=== PATIENT | female | born 1975 | race Caucasian/White ===

== ENCOUNTER 2019-01-21 10:56 | Inpatient (IN) | payer OTHER ==
[2019-01-21] MEDS ORDERED: NORMAL SALINE 1000 ML 1,000 ML IV ONE ×2 (11:18→13:56)
[2019-01-21] MEDS ORDERED: LORAZEPAM INJ 2 MG/1 ML VIAL IV ONE (11:18)
[2019-01-21] MEDS ORDERED: ONDANSETRON HCL INJ/PF 4 MG/2 ML SDV IV ONE ×2 (11:18→12:25)
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
[2019-01-21 11:27] LABS: HEMOGLOBIN 13.6 g/dL (12.0-15.5); MEAN CORPUSCULAR HGB CONC 34.1 g/dL (32.0-36.0); MEAN CORPUSCULAR VOLUME 97 fl (80-97); PLATELET COUNT 673 10^3/uL (150-450); RED BLOOD COUNT 4.14 10^6/uL (3.72-5.28); RED CELL DISTRIBUTION WIDTH 15.2 % (11.5-14.0); WHITE BLOOD COUNT 27.4 10^3/uL (4.0-10.5)
[2019-01-21] MEDS ORDERED: LABETALOL HCL INJ 20 MG/4 ML DISP.SYRIN IV ONE ×2 (11:39→13:48)
[2019-01-21 11:44] LABS: ALBUMIN 5.1 g/dL (3.5-5.0); ALKALINE PHOSPHATASE 78 U/L (38-126); ASPARTATE AMINO TRANSFERASE 37 U/L (14-36); BILIRUBIN,DIRECT 0.1 mg/dL (0.0-0.4); BILIRUBIN,TOTAL 0.6 mg/dL (0.2-1.3); BLOOD UREA NITROGEN 9 mg/dL (7-20); CALCIUM 10.7 mg/dL (8.4-10.2); GLUCOSE 190 mg/dL (75-110); POTASSIUM 4.2 mmol/L (3.6-5.0); TOTAL PROTEIN 8.7 g/dL (6.3-8.2)
[2019-01-21 11:48] LABS: CARBON DIOXIDE 12 mmol/L (22-30); CHLORIDE 108 mmol/L (98-107)
[2019-01-21 11:49] LABS: ALCOHOL < 10 mg/dL (NONE DETECTED)
[2019-01-21 11:58] LABS: ANION GAP 24 (5-19)
[2019-01-21 12:12] LABS: ABSOLUTE LYMPHOCYTES# (MANUAL) 1.6 10^3/uL (0.5-4.7); ABSOLUTE MONOCYTES # (MANUAL) 3.6 10^3/uL (0.1-1.4); BASOPHILS % (MANUAL) 0 % (0-2); EOSINOPHILS % (MANUAL) 0 % (0-6); LYMPHOCYTES % (MANUAL) 6 % (13-45); MONOCYTES % (MANUAL) 13 % (3-13); SEGMENTED NEUTROPHILS % (MAN) 81 % (42-78); TOTAL CELLS COUNTED 100
[2019-01-21 12:13] LABS: ANISOCYTOSIS SLIGHT
[2019-01-21 12:14] LABS: PLATELET COMMENT INCREASED
[2019-01-21 12:53] LABS: APPEARANCE,URINE CLEAR; BILIRUBIN,URINE NEGATIVE (NEGATIVE); COLOR,URINE STRAW; GLUCOSE, URINE 50 mg/dL (NEGATIVE); KETONES,URINE TRACE mg/dL (NEGATIVE); LEUKOCYTE ESTERASE,URINE NEGATIVE (NEGATIVE); NITRITE,URINE NEGATIVE (NEGATIVE); PROTEIN,URINE NEGATIVE (NEGATIVE); URINE SPECIFIC GRAVITY 1.008; UROBILINOGEN,URINE NEGATIVE mg/dL (<2.0)
[2019-01-21 13:04] LABS: URINE AMPHETAMINES SCREEN NEGATIVE; URINE BARBITURATES SCREEN NEGATIVE; URINE BENZODIAZEPINES SCREEN NEGATIVE; URINE COCAINE SCREEN NEGATIVE; URINE MARIJUANA (THC) SCREEN NEGATIVE; URINE METHADONE SCREEN NEGATIVE; URINE PHENCYCLIDINE SCREEN NEGATIVE
--- NOTE | 2019-01-21 13:13 | RADIOLOGY REPORT (SQ) ---
EXAM DESCRIPTION: CT ABD/PELVIS WITH IV ONLY COMPLETED DATE/TIME: 01/21/2019 12:57 pm REASON FOR STUDY: abd pain/vomiting COMPARISON: None. TECHNIQUE: CT scan of the abdomen and pelvis performed using helical scanning technique with dynamic intravenous contrast injection. No oral contrast. Images reviewed with lung, soft tissue, and bone windows. Reconstructed coronal and sagittal MPR images reviewed. Delayed images were not acquired. Al l images stored on PACS. All CT scanners at this facility use dose modulation, iterative reconstruction, and/or weight based d osing when appropriate to reduce radiation dose to as low as reasonably achievable (ALARA). [facility]: Dose Right [facility]: CareDose [facility]: Dose Right [facility]: Teradose 4D [facility]: britebill CONTRAST TYPE AND DOSE: contrast/concentration: Isovue 350.00 mg/ml; Total Contrast Delivered: 66.0 ml; Total Saline Delivered: 65.0 ml RENAL FUNCTION: BUN 9 creatinine 0.84. RADIATION DOSE: CT Rad equipment meets quality standard of care and radiation dose reduction techniq ues were employed. CTDIvol: 4.8 - 5.4 mGy. DLP: 478 mGy-cm.. LIMITATIONS: None. FINDINGS: LOWER CHEST: No significant findings. No nodules or infiltrates. LIVER: Normal size. No masses. No dilated ducts. SPLEEN: Normal size. No focal lesions. PANCREAS: No masses. No significant calcifications. No adjacent inflammation or peripancreatic fluid collections. Pancreatic duct not dilated. GALLBLADDER: No identified stones by CT criteria. No inflammatory changes to suggest cholecystitis. ADRENAL GLANDS: No significant masses or asymmetry. RIGHT KIDNEY AND URETER: No solid masses. No significant calcifications. No hydronephrosis or hyd roureter. LEFT KIDNEY AND URETER: No solid masses. No significant calcifications. No hydronephrosis or hydr oureter. AORTA AND VESSELS: No aneurysm. No dissection. Renal arteries, SMA, celiac without stenosis. RETROPERITONEUM: No retroperitoneal adenopathy, hemorrhage or masses. BOWEL AND PERITONEAL CAVITY: Relative thickening of the wall throughout the colon which may be partly artifactual due to the fact that the colon is not distended. No masses or inflammatory changes. No free fluid or peritoneal masses. APPENDIX: Normal. PELVIS: No mass. No free fluid. Normal bladder. ABDOMINAL WALL: No masses. No hernias. BONES: No significant or acute findings. OTHER: No other significant finding. IMPRESSION: 1. RELATIVE THICKENING OF THE WALL THROUGHOUT THE COLON. THIS PROBABLY IS AT LEAST PARTIALLY ARTIFAC TUAL DUE TO LACK OF DISTENTION. NO SIGNIFICANT INFLAMMATORY CHANGES BUT CANNOT EXCLUDE THE POSSIBILI TY OF A DIFFUSE COLITIS. 2. NO OTHER SIGNIFICANT OR ACUTE FINDING IN THE ABDOMEN OR PELVIS ON CT SCAN WITH IV CONTRAST. TECHNICAL DOCUMENTATION: JOB ID: [id number] Quality ID # [id number]: Final reports with documentation of one or more dose reduction techniques (e.g., Au tomated exposure control, adjustment of the mA and/or kV according to patient size, use of iterative reconstruction technique) 2010 [employer]- All Rights Reserved Reading location - IP/workstation name: [email or web address]
[2019-01-21] MEDS ORDERED: CLONIDINE HCL 0.2 MG TABLET PO ONE (13:45)
[2019-01-21] MEDS ORDERED: PROMETHAZINE HCL INJ 25 MG/1 ML VIAL IV ONE (14:54)
--- NOTE | 2019-01-21 15:24 | RADIOLOGY REPORT (SQ) ---
EXAM DESCRIPTION: CHEST 2 VIEWS COMPLETED DATE/TIME: 01/21/2019 3:07 pm REASON FOR STUDY: confusion COMPARISON: None. EXAM PARAMETERS: NUMBER OF VIEWS: two views TECHNIQUE: Digital Frontal and Lateral radiographic views of the chest acquired. RADIATION DOSE: NA LIMITATIONS: none FINDINGS: LUNGS AND PLEURA: No consolidation, pneumothorax or pleural effusion. MEDIASTINUM AND HILAR STRUCTURES: No masses or contour abnormalities. HEART AND VASCULAR STRUCTURES: Heart normal size. No evidence for failure. BONES: Healed fracture at the posterior left 7th rib. HARDWARE: None in the chest. IMPRESSION: No acute radiographic finding in the chest. TECHNICAL DOCUMENTATION: JOB ID: [id number] [place]-64 2010 [employer]- All Rights Reserved Reading location - IP/workstation name: [email or web address]
--- NOTE | 2019-01-21 15:47 | RADIOLOGY REPORT (SQ) ---
EXAM DESCRIPTION: CT HEAD WITHOUT COMPLETED DATE/TIME: 01/21/2019 3:14 pm REASON FOR STUDY: confusion COMPARISON: None. TECHNIQUE: Axial images acquired through the brain without intravenous contrast. Images reviewed wi th bone, brain and subdural windows. Additional sagittal and coronal reconstructions were generated. Images stored on PACS. All CT scanners at this facility use dose modulation, iterative reconstruction, and/or weight based d osing when appropriate to reduce radiation dose to as low as reasonably achievable (ALARA). [facility]: Dose Right [facility]: CareDose [facility]: Dose Right [facility]: Teradose 4D [facility]: iDoneThis RADIATION DOSE: CT Rad equipment meets quality standard of care and radiation dose reduction techniq ues were employed. CTDIvol: 53.2 mGy. DLP: 937 mGy-cm. mGy. LIMITATIONS: None. FINDINGS: VENTRICLES: Normal size and contour. CEREBRUM: No masses. No hemorrhage. No midline shift. No evidence for acute infarction. Normal gra y/white matter differentiation. No areas of low density in the white matter. CEREBELLUM: No masses. No hemorrhage. No alteration of density. No evidence for acute infarction. EXTRAAXIAL SPACES: No fluid collections. No masses. ORBITS AND GLOBE: No intra- or extraconal masses. Normal contour of globe without masses. CALVARIUM: No fracture. PARANASAL SINUSES: No fluid or mucosal thickening. SOFT TISSUES: No mass or hematoma. OTHER: No other significant finding. IMPRESSION: NORMAL BRAIN CT WITHOUT CONTRAST. EVIDENCE OF ACUTE STROKE: NO. COMMENT: Quality ID # [id number]: Final reports with documentation of one or more dose reduction techniques (e.g., Automated exposure control, adjustment of the mA and/or kV according to patient size, use of iterative reconstruction technique) TECHNICAL DOCUMENTATION: JOB ID: [id number] [employer]- All Rights Reserved Reading location - IP/workstation name: [email or web address]
[2019-01-21] MEDS ORDERED: VANCOMYCIN HCL INJ 1000 MG VIAL IV ONE (16:11)
[2019-01-21] MEDS ORDERED: LEVOFLOXACIN 750 MG/D5W RTU 750 MG/150 ML RTUPB IV ONE (16:13)
[2019-01-21] MEDS ORDERED: HYDRALAZINE HCL INJ/PF 20 MG/1 ML SDV IV PRN (17:38)
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
[2019-01-21 18:20] LABS: A TYPE INFLUENZA AG NEGATIVE (NEGATIVE); B INFLUENZA AG NEGATIVE (NEGATIVE)
[2019-01-21] MEDS ORDERED: METRONIDAZOLE RTU 500 MG/NS 100 ML IV ONE (18:30)
[2019-01-21] MEDS: ONDANSETRON HCL INJ/PF 4 MG/2 ML SDV IV PRN (18:35)
[2019-01-21] MEDS ORDERED: PROMETHAZINE HCL INJ 25 MG/1 ML VIAL ONE (18:41)
[2019-01-21] MEDS: LABETALOL HCL INJ 20 MG/4 ML DISP.SYRIN IV PRN ×2 (18:45→22:22)
[2019-01-21] MEDS: LOSARTAN POTASSIUM 50 MG TABLET PO SCH (18:54)
[2019-01-21] MEDS: PROMETHAZINE HCL INJ 25 MG/1 ML VIAL IV PRN (22:21)
--- NOTE | 2019-01-21 22:40 | EKG REPORT ---
SEVERITY:- ABNORMAL ECG - SINUS TACHYCARDIA PROBABLE LEFT ATRIAL ABNORMALITY PROBABLE INFERIOR INFARCT, OLD : Confirmed by: Ashanti Yang MD 21-Jan-2019 22:39:24
[2019-01-22] MEDS: PROMETHAZINE HCL INJ 25 MG/1 ML VIAL IV PRN (02:24)
[2019-01-22 04:18] LABS: HEMATOCRIT 35.7 % (36.0-47.0); HEMOGLOBIN 12.6 g/dL (12.0-15.5); MEAN CORPUSCULAR HEMOGLOBIN 33.4 pg (27.0-33.4); MEAN CORPUSCULAR HGB CONC 35.2 g/dL (32.0-36.0); MEAN CORPUSCULAR VOLUME 95 fl (80-97); PLATELET COUNT 577 10^3/uL (150-450); RED BLOOD COUNT 3.76 10^6/uL (3.72-5.28); RED CELL DISTRIBUTION WIDTH 15.1 % (11.5-14.0); WHITE BLOOD COUNT 18.7 10^3/uL (4.0-10.5)
[2019-01-22 04:35] LABS: ANION GAP 17 (5-19); BLOOD UREA NITROGEN 13 mg/dL (7-20); CALCIUM 9.4 mg/dL (8.4-10.2); CARBON DIOXIDE 19 mmol/L (22-30); CHLORIDE 102 mmol/L (98-107); GLUCOSE 133 mg/dL (75-110); POTASSIUM 3.5 mmol/L (3.6-5.0)
--- NOTE | 2019-01-22 07:30 | EKG REPORT ---
SEVERITY:- ABNORMAL ECG - SINUS RHYTHM FIRST DEGREE AV BLOCK PROLONGED QT INTERVAL : Confirmed by: Robert Srivastava MD 22-Jan-2019 07:29:40
[2019-01-22] MEDS ORDERED: LOSARTAN POTASSIUM 50 MG TABLET PO SCH (10:00)
[2019-01-22] MEDS: LOSARTAN POTASSIUM 50 MG TABLET PO SCH (11:37)
[2019-01-22] MEDS: LEVETIRACETAM 500 MG TABLET PO SCH ×2 (11:38→21:56)
[2019-01-22] MEDS: PAROXETINE HCL 20 MG TABLET PO SCH (11:38)
[2019-01-22] MEDS: ENOXAPARIN SODIUM INJ 40 MG/0.4 ML DISP.SYRIN SUBCUT SCH (11:40)
[2019-01-22] MEDS: ONDANSETRON HCL INJ/PF 4 MG/2 ML SDV IV PRN (11:54)
[2019-01-22] MEDS ORDERED: LEVOFLOXACIN 750 MG/D5W RTU 750 MG/150 ML RTUPB IV SCH (18:00)
--- NOTE | 2019-01-22 20:29 | XCELERA REPORT ---
[address] [address] Transthoracic Echocardiogram Report Name: SARAN ACOSTA Age: 43 yrs Gender: Female : 1975 Patient Status: Inpatient Patient Location: ICU^602^A Study Date: 01/22/2019 02:30 PM Height: 62 in Weight: 124 lb BSA: 1.6 m2 Procedure: A two-dimensional transthoracic echocardiogram with color flow and Doppler was performed. The study was technically difficult with many images being suboptimal in quality. Reason For Study: Endocarditis History: Endocarditis. Ordering Physician: CLIVE ALTMAN Performed By: Pasha Darnell Interpretation Summary No defenite evidence of endocarditis,but recommend ASHLEY to be sure.(This study is limited). The left ventricle is normal in size. There is normal left ventricular wall thickness. LV EF is 70% Left ventricular systolic function is normal. Doppler measurements suggest impaired left ventricular relaxation, which is associated with grade I/IV or mild diastolic dysfunction The left ventricular wall motion is normal. There is no thrombus. The right ventricle is not well visualized secondary to technical limitations The right atrium is normal. The left atrial size is normal. Probably no ASD ,VSD, or PFO seen. There is no evidence of mitral valve prolapse. There is no vegetation seen on the mitral valve. There is no mitral valve stenosis. There is a trace amount of mitral regurgitation There is no aortic valvular vegetation. There is no aortic valve stenosis There is aortic sclerosis without aortic stenosis. No aortic regurgitation is present. There is no tricuspid stenosis. There is a trace to mild amount of tricuspid regurgitation Right ventricular systolic pressure is normal. RVSP is 21 to 26 mm of Hg , with RA MEAN OF 5 TO 10. The pulmonic valve is not well visualized. There is no pulmonic valvular stenosis. There is no pulmonic valvular regurgitation. The aortic root is normal size. The inferior vena cava appeared normal and decreased > 50% with respiration (RAP 5-10 mmHg) There is no pericardial effusion. No defenite evidence of endocarditis,but recommend ASHLEY to be sure.(This study is limited) MMode/2D Measurements & Calculations RVDd: 2.8 cm LVIDd: 3.6 cm FS: 43.5 % Ao root diam: 3.6 cm IVSd: 1.1 cm LVIDs: 2.1 cm EDV(Teich): 55.9 ml Ao root area: 9.9 cm2 LVPWd: 1.1 cm ESV(Teich): 13.6 ml LA dimension: 2.7 cm EF(Teich): 75.6 % Doppler Measurements & Calculations MV E max tessa: MV P1/2t max tessa: Ao V2 max: LV V1 max P.8 cm/sec 76.4 cm/sec 186.2 cm/sec 13.1 mmHg MV A max tessa: MV P1/2t: 54.8 msec Ao max PG: LV V1 max: 74.9 cm/sec MVA(P1/2t): 4.0 cm2 13.9 mmHg 181.2 cm/sec MV E/A: 0.88 MV dec slope: 408.9 cm/sec2 MV dec time: 0.19 sec PA V2 max: TR max tessa: MV P1/2t-pr_phl: 157.7 cm/sec 198.7 cm/sec 54.8 msec PA max P.9 mmHgTR max P.8 mmHg Left Ventricle The left ventricle is normal in size. There is normal left ventricular wall thickness. LV EF is 70%. Left ventricular systolic function is normal. Doppler measurements suggest impaired left ventricular relaxation, which is associated with grade I/IV or mild diastolic dysfunction. The left ventricular wall motion is normal. There is no thrombus. Right Ventricle The right ventricle is not well visualized secondary to technical limitations. Atria The right atrium is normal. The left atrial size is normal. Probably no ASD ,VSD, or PFO seen. Mitral Valve There is no evidence of mitral valve prolapse. There is no vegetation seen on the mitral valve. There is no mitral valve stenosis. There is a trace amount of mitral regurgitation. Aortic Valve There is no aortic valvular vegetation. There is no aortic valve stenosis. There is aortic sclerosis without aortic stenosis. No aortic regurgitation is present. Tricuspid Valve There is no tricuspid valve vegetation. There is no tricuspid stenosis. There is a trace to mild amount of tricuspid regurgitation. Right ventricular systolic pressure is normal. RVSP is 21 to 26 mm of Hg , with RA MEAN OF 5 TO 10. Pulmonic Valve The pulmonic valve is not well visualized. There is no pulmonic valvular stenosis. There is no pulmonic valvular regurgitation. Great Vessels The aortic root is normal size. The inferior vena cava appeared normal and decreased > 50% with respiration (RAP 5-10 mmHg). Effusions There is no pericardial effusion. : CLIVE ALTMAN Lakshmi
--- NOTE | 2019-01-22 21:00 | PDOC PROGRESS REPORT ---
Subjective Progress Note for:: 01/22/19 - Critical Care Subjective:: In the last 12 to 24 hours patient's condition has improved. She still has nausea but this is been ongoing and chronic for a number of years. Denies any chest pain shortness of breath, headache. She does endorse that she is very anxious and this causes her abdomen to feel uncomfortable. Her daughter was present at bedside and confirms and endorses the same thing in both she and other family members. Patient underwent echocardiogram today which showed no wall motion abnormalities no ventricular changes. Her EKG shows Q waves in the inferior leads and ST segment changes however this appears to be related to a downslope in the DE interval. She remains hemodynamic medically stable today. Reason For Visit: HYPERTENSIVE URGENCY,INTRACTABLE NAUSEA AND Physical Exam Vital Signs: Temp Pulse Resp BP Pulse Ox 98.1 F 80 23 H 101/66 98 01/22/19 20:00 01/22/19 20:00 01/22/19 16:00 01/22/19 18:32 01/22/19 18:32 Intake & Output 01/21/19 01/22/19 01/23/19 06:59 06:59 06:59 Intake Total 2150 240 Output Total 600 325 Balance 1550 -85 Weight 56.5 kg General appearance: PRESENT: no acute distress, disheveled, thin Head exam: PRESENT: atraumatic, normocephalic Eye exam: PRESENT: conjunctiva pink, EOMI, PERRLA. ABSENT: conjunctival injection, nystagmus, scleral icterus Ear exam: PRESENT: normal external ear exam Mouth exam: PRESENT: dry mucosa, neck supple Teeth exam: PRESENT: poor dentation Neck exam: PRESENT: full ROM. ABSENT: carotid bruit, JVD, lymphadenopathy, meningismus, tenderness, thyromegaly, tracheal deviation, tracheostomy Respiratory exam: PRESENT: clear to auscultation riana, symmetrical, unlabored. ABSENT: accessory muscle use, chest wall tenderness Cardiovascular exam: PRESENT: RRR, systolic murmur Murmur grade: 2 Pulses: PRESENT: normal carotid pulses, normal radial pulses, +1 pedal pulses bilateral Vascular exam: PRESENT: normal capillary refill GI/Abdominal exam: PRESENT: normal bowel sounds, soft. ABSENT: ascites, distended, firm, guarding, mass, Jaramillo's sign, organolmegaly, rebound, rigid, tenderness Rectal exam: PRESENT: deferred Extremities exam: PRESENT: full ROM Musculoskeletal exam: PRESENT: full ROM, normal inspection. ABSENT: deformity, dislocation Neurological exam: PRESENT: alert, awake, oriented to time, oriented to situation, CN II-XII grossly intact, motor sensory deficit Psychiatric exam: PRESENT: anxious, flat affect Focused psych exam: ABSENT: catatonic, delusional, euphoric, flight of ideas, internal stimuli, paranoid, pressured speech, psychomotor agitation Skin exam: PRESENT: intact, normal color, warm. ABSENT: abrasion, cyanosis, erythema, jaundice, mottled, pallor, petechiae, rash, skin tears, urticaria, vesicles Results Laboratory Results: 01/22/19 03:37 01/22/19 03:37 01/22/19 01/22/19 01/22/19 03:37 03:37 03:37 WBC 18.7 H RBC 3.76 Hgb 12.6 Hct 35.7 L MCV 95 MCH 33.4 MCHC 35.2 RDW 15.1 H Plt Count 577 H Sodium 137.7 Potassium 3.5 L Chloride 102 Carbon Dioxide 19 L Anion Gap 17 BUN 13 Creatinine 0.78 Est GFR ( Amer) > 60 Glucose 133 H Lactic Acid Calcium 9.4 Amylase Lipase TSH 2.69 01/22/19 01/22/19 03:37 10:15 WBC RBC Hgb Hct MCV MCH MCHC RDW Plt Count Sodium Potassium Chloride Carbon Dioxide Anion Gap BUN Creatinine Est GFR ( Amer) Glucose Lactic Acid 1.5 Calcium Amylase 79 Lipase 49.9 TSH 01/21/19 01/22/19 01/22/19 18:00 03:37 15:35 Troponin I 0.059 0.036 0.017 EKG Comments: In comparison to previous EKGs patient has persistent Q waves in the inferior leads with a pseudo-ST segment elevation secondary to depressed DE segment. QTC is 505 ms Impressions: Abdomen/Pelvis CT 01/21/19 11:18 IMPRESSION: 1. RELATIVE THICKENING OF THE WALL THROUGHOUT THE COLON. THIS PROBABLY IS AT LEAST PARTIALLY ARTIFACTUAL DUE TO LACK OF DISTENTION. NO SIGNIFICANT INFLAMMATORY CHANGES BUT CANNOT EXCLUDE THE POSSIBILITY OF A DIFFUSE COLITIS. 2. NO OTHER SIGNIFICANT OR ACUTE FINDING IN THE ABDOMEN OR PELVIS ON CT SCAN WITH IV CONTRAST. Chest X-Ray 01/21/19 14:04 IMPRESSION: No acute radiographic finding in the chest. Head CT 01/21/19 14:04 IMPRESSION: NORMAL BRAIN CT WITHOUT CONTRAST. EVIDENCE OF ACUTE STROKE: NO. Status: Image reviewed by me - Lungs are completely clear with flattened diaphragms Assessment & Plan - Diagnosis (1) Lactic acidosis Is this a current diagnosis for this admission?: Yes (2) Hypertensive urgency Is this a current diagnosis for this admission?: Yes (3) Intractable vomiting with nausea Is this a current diagnosis for this admission?: Yes (4) Leukocytosis Qualifiers: Leukocytosis type: leukemoid reaction Qualified Code(s): D72.823 - Leukemoid reaction Is this a current diagnosis for this admission?: Yes (5) Anxiety as acute reaction to exceptional stress Is this a current diagnosis for this admission?: Yes (6) Seizure disorder as sequela of cerebrovascular accident Is this a current diagnosis for this admission?: No Plan: Continue Keppra (7) History of CVA (cerebrovascular accident) without residual deficits Is this a current diagnosis for this admission?: No - Time Time Spent with patient: 35 or more minutes Total Critical Time (Minutes): 45 - Difficult time spent in evaluation of EKG and discussion with patient and family Smoking Cessation Education: 3 to 10 minutes Medications reviewed and adjusted accordingly: Yes Anticipated discharge: Other - Transfer to floor and then eventually discharged home with daughter with follow-up at [facility] and/or [facility] Within: within 24 hours Disposition: Potential downgrade to regular floor blood pressure remains non-labile - Inpatient Certification Based on my medical assessment, after consideration of the patient's comorbidities, presenting symptoms, or acuity I expect that the services needed warrant INPATIENT care.: Yes I certify that my determination is in accordance with my understanding of Medicare's requirements for reasonable and necessary INPATIENT services [42 CFR 412.3e].: Yes Medical Necessity: Failure to Improve With Outpatient Therapy, Need For Continuous Telemetry Monitoring, Need for Neurological Checks, Risk of Complication if Not Cared For in Hospital, Risk of Diagnosis Which Will Require Inpatient Eval/Care/Monitoring Post Hospital Care: D/C Route Salesman Documentation - Plan Summary Plan Summary: Patient had hypertensive emergency requiring admission. She has Q waves in lead III on her EKG making a suspicion for an inferior PA at some point highly probable. We will have cardiology follow-up check troponins. I am somewhat bridged by her echocardiogram. Had a long lengthy discussion with both the patient and her family regarding her anxiety. Our plans are to have the patient follow-up at [facility] as well as [facility] where she is already sought care and treatment. She has had multiple endoscopic procedures and I have requested old records to evaluate for these. He was noted to have a seizure on a previous possible stroke has had MRIs. These appear to be frontal based on what the family is describing. We will continue her on aspirin and statin therapy and evaluate her old records. Her QTC is prolonged and we have stopped her Levaquin, Zofran and any other medications which may affect this. We will follow-up on her magnesium and attempt to keep the level at or close to 3. Patient had significant hypertension which has improved however she is at risk for recrudescence. We will continue to monitor her hemodynamic status.
[2019-01-22 21:29] LABS: ANION GAP 13 (5-19); BLOOD UREA NITROGEN 15 mg/dL (7-20); CALCIUM 9.5 mg/dL (8.4-10.2); CARBON DIOXIDE 22 mmol/L (22-30); CHLORIDE 105 mmol/L (98-107); GLUCOSE 96 mg/dL (75-110); POTASSIUM 3.2 mmol/L (3.6-5.0)
[2019-01-22] MEDS ORDERED: ATORVASTATIN CALCIUM 20 MG TABLET PO SCH (22:00)
[2019-01-22] MEDS ORDERED: ASPIRIN 81 MG TABLET, CHEWABLE PO SCH (22:00)
[2019-01-23 04:54] LABS: ABSOLUTE BASOPHILS # (AUTO) 0.1 10^3/uL (0.0-0.2); ABSOLUTE EOSINOPHILS # (AUTO) 0.2 10^3/uL (0.0-0.6); ABSOLUTE LYMPHOCYTES (AUTO) 2.8 10^3/uL (0.5-4.7); ABSOLUTE MONOCYTES (AUTO) 0.9 10^3/uL (0.1-1.4); ABSOLUTE NEUT (AUTO) 4.5 10^3/uL (1.7-8.2); BASOPHILS % (AUTO) 1.2 % (0-2); EOSINOPHILS % (AUTO) 1.9 % (0-6); HEMATOCRIT 34.8 % (36.0-47.0); HEMOGLOBIN 11.9 g/dL (12.0-15.5); LYMPHOCYTES % (AUTO) 32.8 % (13-45); MEAN CORPUSCULAR HEMOGLOBIN 32.8 pg (27.0-33.4); MEAN CORPUSCULAR HGB CONC 34.2 g/dL (32.0-36.0); MEAN CORPUSCULAR VOLUME 96 fl (80-97); PLATELET COUNT 501 10^3/uL (150-450); RED BLOOD COUNT 3.63 10^6/uL (3.72-5.28); RED CELL DISTRIBUTION WIDTH 14.7 % (11.5-14.0); SEGMENTED NEUTROPHILS % (AUTO) 53.1 % (42-78); TOTAL CELLS COUNTED % (AUTO) 100 %; WHITE BLOOD COUNT 8.5 10^3/uL (4.0-10.5)
[2019-01-23 05:05] LABS: INTERNATIONAL RATION (INR) 1.03; PARTIAL THROMBOPLASTIN TIME 26.7 SEC (23.5-35.8); PROTHROMBIN TIME 13.5 SEC (11.4-15.4)
[2019-01-23 05:22] LABS: ALBUMIN 4.2 g/dL (3.5-5.0); ALKALINE PHOSPHATASE 52 U/L (38-126); ANION GAP 12 (5-19); ASPARTATE AMINO TRANSFERASE 23 U/L (14-36); BILIRUBIN,DIRECT 0.2 mg/dL (0.0-0.4); BILIRUBIN,TOTAL 1.2 mg/dL (0.2-1.3); BLOOD UREA NITROGEN 18 mg/dL (7-20); CALCIUM 9.6 mg/dL (8.4-10.2); CARBON DIOXIDE 23 mmol/L (22-30); CHLORIDE 106 mmol/L (98-107); GLUCOSE 88 mg/dL (75-110); PHOSPHORUS 4.1 mg/dL (2.5-4.5); POTASSIUM 3.5 mmol/L (3.6-5.0); TOTAL PROTEIN 7.2 g/dL (6.3-8.2)
--- NOTE | 2019-01-23 07:53 | EKG REPORT ---
SEVERITY:- ABNORMAL ECG - SINUS RHYTHM ST ELEVATION, PROBABLE INFERIOR INJURY ,UNCHANGED FROM 01/21/19 EKG BORDERLINE PROLONGED QT INTERVAL : Confirmed by: Robert Srivastava MD 23-Jan-2019 07:52:12
[2019-01-23] MEDS ORDERED: MAGNESIUM SULFATE INJ 8 MEQ/2 ML IV ONE (08:30)
[2019-01-23] MEDS ORDERED: POTASSIUM CHLORIDE 10 MEQ CAPSULE.ER PO ONE (08:30)
[2019-01-23] MEDS: LEVETIRACETAM 500 MG TABLET PO SCH (10:25)
[2019-01-23] MEDS: LOSARTAN POTASSIUM 50 MG TABLET PO SCH (10:25)
[2019-01-23] MEDS: ENOXAPARIN SODIUM INJ 40 MG/0.4 ML DISP.SYRIN SUBCUT SCH (10:25)
[2019-01-23] MEDS: MAGNESIUM SULFATE 1 GM/D5W 100 ML IV SCH ×2 (10:25→13:02)
[2019-01-23] MEDS: PAROXETINE HCL 20 MG TABLET PO SCH (10:26)
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
--- NOTE | 2019-01-23 11:49 | PDOC DISCHARGE SUMMARY ---
Impression - Admit/DC Date/PCP Admission Date/Primary Care Provider: 01/21/19 16:30 URBAN BLEVINS MD Discharge Date: 01/23/19 - Discharge Diagnosis (1) Lactic acidosis Is this a current diagnosis for this admission?: Yes (2) Hypertensive urgency Is this a current diagnosis for this admission?: Yes (3) Intractable vomiting with nausea Is this a current diagnosis for this admission?: Yes (4) Leukocytosis Is this a current diagnosis for this admission?: Yes (5) Anxiety as acute reaction to exceptional stress Is this a current diagnosis for this admission?: Yes (6) Seizure disorder as sequela of cerebrovascular accident Is this a current diagnosis for this admission?: No (7) History of CVA (cerebrovascular accident) without residual deficits Is this a current diagnosis for this admission?: No - Assessment Summary: Saran Mcneil is a 43-year-old female who was admitted to the ICU because of intractable vomiting and pressure elevation. The concern was that her blood pressure elevation may be contributing to her nausea vomiting and possible cardiovascular hemodynamic effects. Is admitted to the ICU and monitored from a hemodynamic standpoint. She had a small elevation in her troponin but no echocardiographic evidence of wall motion abnormalities. Her nausea abated over time. Discussion with her and her family revealed that the patient often becomes nauseous with very significant interactions and she had a verbal disagreement with her leading to the events which required her to be admitted. She was started back on her ARB. She had no further severe elevation in her blood pressure. She did have an elevation in her white blood cell count and lactic acidosis with a metabolic acidosis on her BMP. She responded to fluids and conservative therapy. We performed multiple studies to determine where an infection might possibly be however none was found including blood cultures. Echocardiogram was done to rule out endocarditis and there was no vegetation noted. Of note her EKG showed evidence of a Q wave in the inferior leads. There appeared to be pseudo-ST segment elevation in these leads however echocardiogram did not show any ventricular aneurysm. She does have bilateral David's side indicative of possible atherosclerotic coronary disease. We have recommended that she follow-up with cardiology. The family and the patient would like to be discharged if possible and we are in agreement as long as she follows up with her primary care provider and cardiology. We do recommend that she have a cardiac cath to determine that her nausea is not coming from a coronary source. She will be maintained on aspirin Lipitor losartan Paxil and her Neurontin as well as Keppra. Though we would recommend further work-up in this hospital we are limited by lack of GI coverage and interventional cardiology. At this point she appears to be safe for discharge and for follow-up with her PCP. Her PCP is Sakina Hunter PA-C who works with [facility] at [employer] in [place]. - Additional Information Resuscitation Status: Full Code Discharge Diet: As Tolerated Discharge Activity: Activity As Tolerated Home Medications: Aspirin [Aspirin 81 mg Chewable Tablet] 81 mg PO DAILY 01/22/19 Ergocalciferol (Vitamin D2) [Drisdol 50,000 unit (1.25MG) Capsule] 50,000 unit PO WE 01/22/19 Famotidine [Pepcid 20 mg Tablet] 20 mg PO BID 01/22/19 Folic Acid [Folvite 1 mg Tablet] 1 mg PO DAILY 01/22/19 Gabapentin [Neurontin 300 mg Capsule] 300 mg PO Q8 01/22/19 Levetiracetam [Keppra 500 mg Tablet] 500 mg PO BID 01/22/19 Losartan Potassium [Cozaar 50 mg Tablet] 50 mg PO DAILY 01/22/19 Megestrol Acetate [Megace 20 mg Tablet] 20 mg PO DAILY 01/22/19 Paroxetine HCl [Paxil 20 mg Tablet] 20 mg PO DAILY 01/22/19 Pravastatin Sodium [Pravachol] 10 mg PO QHS 01/22/19 Additional Information: Please seek medical attention immediately for chest pain, shortness of breath, fever or chills. Please follow-up with cardiology, gastroenterology and most importantly your primary care provider Sakina Hunter PA-C. Please take all medications prescribed. Total I am spent in discharge including discussion with patient and daughter 38 minutes History of Present Illiness History of Present Illness: SARAN MCNEIL is a 43 year old female Physical Exam Vital Signs: Temp Pulse Resp BP Pulse Ox 99.2 F 83 17 148/96 H 99 01/23/19 08:00 01/23/19 10:00 01/23/19 10:32 01/23/19 10:32 01/23/19 10:32 Intake & Output 01/22/19 01/23/19 01/24/19 06:59 06:59 06:59 Intake Total 2150 265 Output Total 600 525 100 Balance 1550 -260 -100 Weight 56.5 kg 53.9 kg Results Laboratory Results: WBC 8.5 10^3/uL (4.0-10.5) 01/23/19 03:52 RBC 3.63 10^6/uL (3.72-5.28) L 01/23/19 03:52 Hgb 11.9 g/dL (12.0-15.5) L 01/23/19 03:52 Hct 34.8 % (36.0-47.0) L 01/23/19 03:52 MCV 96 fl (80-97) 01/23/19 03:52 MCH 32.8 pg (27.0-33.4) 01/23/19 03:52 MCHC 34.2 g/dL (32.0-36.0) 01/23/19 03:52 RDW 14.7 % (11.5-14.0) H 01/23/19 03:52 Plt Count 501 10^3/uL (150-450) H 01/23/19 03:52 Lymph % (Auto) 32.8 % (13-45) 01/23/19 03:52 Carter % (Auto) 11.0 % (3-13) 01/23/19 03:52 Eos % (Auto) 1.9 % (0-6) 01/23/19 03:52 Baso % (Auto) 1.2 % (0-2) 01/23/19 03:52 Absolute Neuts (auto) 4.5 10^3/uL (1.7-8.2) 01/23/19 03:52 Absolute Lymphs (auto) 2.8 10^3/uL (0.5-4.7) 01/23/19 03:52 Absolute Monos (auto) 0.9 10^3/uL (0.1-1.4) 01/23/19 03:52 Absolute Eos (auto) 0.2 10^3/uL (0.0-0.6) 01/23/19 03:52 Absolute Basos (auto) 0.1 10^3/uL (0.0-0.2) 01/23/19 03:52 Total Counted 100 01/21/19 11:07 Seg Neutrophils % 53.1 % (42-78) 01/23/19 03:52 Seg Neuts % (Manual) 81 % (42-78) H 01/21/19 11:07 Lymphocytes % (Manual) 6 % (13-45) L 01/21/19 11:07 Monocytes % (Manual) 13 % (3-13) 01/21/19 11:07 Eosinophils % (Manual) 0 % (0-6) 01/21/19 11:07 Basophils % (Manual) 0 % (0-2) 01/21/19 11:07 Abs Neuts (Manual) 22.2 10^3/uL (1.7-8.2) H 01/21/19 11:07 Abs Lymphs (Manual) 1.6 10^3/uL (0.5-4.7) 01/21/19 11:07 Abs Monocytes (Manual) 3.6 10^3/uL (0.1-1.4) H 01/21/19 11:07 Absolute Eos (Manual) 0.0 10^3/uL (0.0-0.6) 01/21/19 11:07 Abs Basophils (Manual) 0.0 10^3/uL (0.0-0.2) 01/21/19 11:07 Platelet Comment INCREASED 01/21/19 11:07 Anisocytosis SLIGHT 01/21/19 11:07 PT 13.5 SEC (11.4-15.4) 01/23/19 03:52 INR 1.03 01/23/19 03:52 APTT 26.7 SEC (23.5-35.8) 01/23/19 03:52 Sodium 141.1 mmol/L (137-145) 01/23/19 03:52 Potassium 3.5 mmol/L (3.6-5.0) L 01/23/19 03:52 Chloride 106 mmol/L (98-107) 01/23/19 03:52 Carbon Dioxide 23 mmol/L (22-30) 01/23/19 03:52 Anion Gap 12 (5-19) 01/23/19 03:52 BUN 18 mg/dL (7-20) 01/23/19 03:52 Creatinine 0.89 mg/dL (0.52-1.25) 01/23/19 03:52 Est GFR ( Amer) > 60 (>60) 01/23/19 03:52 Est GFR (MDRD) Non-Af > 60 (>60) 01/23/19 03:52 Glucose 88 mg/dL (75-110) 01/23/19 03:52 Hemoglobin A1c % 5.1 % (4.7-6.0) 01/23/19 03:52 Lactic Acid 1.0 mmol/L (0.7-2.1) 01/23/19 03:52 Calcium 9.6 mg/dL (8.4-10.2) 01/23/19 03:52 Phosphorus 4.1 mg/dL (2.5-4.5) 01/23/19 03:52 Magnesium 2.0 mg/dL (1.6-2.3) 01/23/19 03:52 Total Bilirubin 1.2 mg/dL (0.2-1.3) 01/23/19 03:52 Direct Bilirubin 0.2 mg/dL (0.0-0.4) 01/23/19 03:52 Neonat Total Bilirubin Not Reportable 01/23/19 03:52 Neonat Direct Bilirubin Not Reportable 01/23/19 03:52 Neonat Indirect Bili Not Reportable 01/23/19 03:52 AST 23 U/L (14-36) 01/23/19 03:52 ALT 12 U/L (<35) 01/23/19 03:52 Alkaline Phosphatase 52 U/L (38-126) 01/23/19 03:52 Troponin I < 0.012 ng/mL 01/23/19 03:52 Total Protein 7.2 g/dL (6.3-8.2) 01/23/19 03:52 Albumin 4.2 g/dL (3.5-5.0) 01/23/19 03:52 Amylase 79 U/L (30-110) 01/22/19 03:37 Lipase 49.9 U/L (23-300) 01/22/19 03:37 TSH 2.69 uIU/mL (0.47-4.68) 01/22/19 03:37 Urine Color STRAW 01/21/19 12:37 Urine Appearance CLEAR 01/21/19 12:37 Urine pH 6.0 (5.0-9.0) 01/21/19 12:37 Ur Specific [place] 1.008 01/21/19 12:37 Urine Protein NEGATIVE mg/dL (NEGATIVE) 01/21/19 12:37 Urine Glucose (UA) 50 mg/dL (NEGATIVE) H 01/21/19 12:37 Urine Ketones TRACE mg/dL (NEGATIVE) H 01/21/19 12:37 Urine Blood NEGATIVE (NEGATIVE) 01/21/19 12:37 Urine Nitrite NEGATIVE (NEGATIVE) 01/21/19 12:37 Urine Bilirubin NEGATIVE (NEGATIVE) 01/21/19 12:37 Urine Urobilinogen NEGATIVE mg/dL (<2.0) 01/21/19 12:37 Ur Leukocyte Esterase NEGATIVE (NEGATIVE) 01/21/19 12:37 Urine WBC (Auto) 1 /HPF 01/21/19 12:37 Urine RBC (Auto) 0 /HPF 01/21/19 12:37 U Hyaline Cast (Auto) 1 /LPF 01/21/19 12:37 Squamous Epi Cells Auto 1 /HPF 01/21/19 12:37 Urine Mucus (Auto) RARE /LPF 01/21/19 12:37 Urine Ascorbic Acid NEGATIVE (NEGATIVE) 01/21/19 12:37 Urine HCG, Qual NEGATIVE (NEGATIVE) 01/21/19 12:37 Urine Opiates Screen NEGATIVE 01/21/19 12:37 Urine Methadone Screen NEGATIVE 01/21/19 12:37 Ur Barbiturates Screen NEGATIVE 01/21/19 12:37 Ur Phencyclidine Scrn NEGATIVE 01/21/19 12:37 Ur Amphetamines Screen NEGATIVE 01/21/19 12:37 U Benzodiazepines Scrn NEGATIVE 01/21/19 12:37 Urine Cocaine Screen NEGATIVE 01/21/19 12:37 U Marijuana (THC) Screen NEGATIVE 01/21/19 12:37 Serum Alcohol < 10 mg/dL (NONE DETECTED) 01/21/19 11:07 Influenza A (Rapid) NEGATIVE (NEGATIVE) 01/21/19 17:40 Influenza B (Rapid) NEGATIVE (NEGATIVE) 01/21/19 17:40 01/21/19 01/22/19 01/22/19 18:00 03:37 15:35 Troponin I 0.059 0.036 0.017 01/23/19 03:52 Troponin I < 0.012 Impressions: Abdomen/Pelvis CT 01/21/19 11:18 IMPRESSION: 1. RELATIVE THICKENING OF THE WALL THROUGHOUT THE COLON. THIS PROBABLY IS AT LEAST PARTIALLY ARTIFACTUAL DUE TO LACK OF DISTENTION. NO SIGNIFICANT INFLAMMATORY CHANGES BUT CANNOT EXCLUDE THE POSSIBILITY OF A DIFFUSE COLITIS. 2. NO OTHER SIGNIFICANT OR ACUTE FINDING IN THE ABDOMEN OR PELVIS ON CT SCAN WITH IV CONTRAST. Chest X-Ray 01/21/19 14:04 IMPRESSION: No acute radiographic finding in the chest. Head CT 01/21/19 14:04 IMPRESSION: NORMAL BRAIN CT WITHOUT CONTRAST. EVIDENCE OF ACUTE STROKE: NO. Stroke Is this a Stroke Patient?: No Stroke Pt being discharged on Anti-thrombolytic therapy?: Yes Stroke Pt being discharged on Anti-coagulation therapy?: No Reason(s) for not prescribing Anti-coagulation therapy:: Not indicated Stroke Pt being discharged on Statins?: Yes Acute Heart Failure - Is this a Heart Failure Patient?: No
[2019-01-23 16:41] VITALS: BP 99/70
== END 2019-01-23 16:31 | disposition home or self-care (01) | DRG 305 ==
LOC: ER 10:56 → EH 16:30 → ICU 18:10
PROVIDERS: ADMIT Internal Medicine; ATTEND Internal Medicine
DX: I16.0 Hypertensive urgency (principal); E87.2 Acidosis; F43.0 Acute stress reaction; Z63.0 Problems in relationship with spouse or partner; I10 Essential (primary) hypertension; R79.89 Other specified abnormal findings of blood chemistry; F32.9 Major depressive disorder, single episode, unspecified; R11.2 Nausea with vomiting, unspecified; I69.398 Other sequelae of cerebral infarction; G40.909 Epilepsy, unspecified, not intractable, without status epilepticus; D72.823 Leukemoid reaction; Z79.899 Other long term (current) drug therapy; Z79.82 Long term (current) use of aspirin
CPT/HCPCS: 36415; 70450; 71046; 74177; 80048; 80053; 80307; 81001; 81025; 82150; 83036; 83605; 83690; 83735; 84100; 84443; 84484; 85025; 85027; 85610; 85730; 87040; 87804; 93005; 93010; 93306; 96361; 96374; 96375; 96376; 99291; J0360; J1650; J1956; J2060; J2405; J2550; J3370; J3475; J3490; J7030